=== PATIENT | male | born 1980 | race African-American/Black ===

== ENCOUNTER 2018-04-26 13:03 | Inpatient (IN) | payer MEDICAID ==
[~2018-04-26] VITALS: Ht 190.5 cm; Wt 83.5 kg
[~2018-04-26 13:03] MED LIST: ALBU8HFA IH; DIVA500T52 PO; LITH300CRT PO; LURA80 PO; QUET300T2 PO
[2018-04-26] MEDS ORDERED: CLOZ100 PO (13:15)
[2018-04-26] MEDS ORDERED: RITO100T PO (13:15)
[2018-04-26] MEDS ORDERED: DARU800T PO (13:15)
[2018-04-26] MEDS ORDERED: CHLO100T24 PO (13:15)
[2018-04-26] MEDS ORDERED: EMTR1TAB13 PO (13:15)
[2018-04-26 15:31] LABS: BASOPHILS % (AUTO) 0.9 % (0.0-2.0); EOSINOPHILS % (AUTO) 0.2 % (1.0-6.0); HEMATOCRIT 42.4 % (41-53); HEMOGLOBIN 14.1 g/dL (13.5-17.5); LYMPHOCYTES % (AUTO) 13.3 % (22.0-44.0); MEAN CORPUSCULAR HEMOGLOBIN 32.3 pg (26.0-34.0); MEAN CORPUSCULAR HGB CONC 33.3 G/dL (31.0-37.0); MEAN CORPUSCULAR VOLUME 97 fL (80-100); MONOCYTES # (AUTO) 0.6 K/uL (0.1-1.0); MONOCYTES % (AUTO) 7.6 % (2.0-9.0); NEUTROPHILS # (AUTO) 5.9 K/uL (1.8-7.7); PLATELET COUNT (AUTO) 257 K/uL (150-450); RED BLOOD CELL COUNT(AUTO) 4.37 MIL/uL (4.50-5.90); RED CELL DISTRIBUTION WIDTH 13.1 % (11.5-14.5)
[2018-04-26 15:47] LABS: ANION GAP 9 mmol/L (8-16); CALCIUM, TOTAL 8.9 mg/dL (8.8-10.5); CARBON DIOXIDE 27 mmol/L (22-29); CHLORIDE 101 mmol/L (98-107); CREATININE 1.58 mg/dL (0.60-1.30); GLOMERULAR FILTR. RATE CALC 60 mL/min (>60); GLUCOSE,RANDOM 90 mg/dL (70-110); POTASSIUM 4.1 mmol/L (3.5-5.1); SODIUM SERUM 137 mmol/L (136-145); UREA NITROGEN, BLOOD 22 mg/dL (7-18)
[2018-04-26 15:50] LABS: ALANINE AMINOTRANSFERASE 96 U/L (12-78); ALBUMIN 4.4 g/dL (3.4-5.0); ALKALINE PHOSPHATASE 106 U/L (46-116); ASPARTATE AMINOTRANSFERASE 52 U/L (15-37); BILIRUBIN,TOTAL 0.7 mg/dL (0.1-1.0); TOTAL PROTEIN, SERUM 8.3 g/dL (6.4-8.2)
[2018-04-26 16:54] LABS: APPEARANCE,URINE CLEAR (CLEAR); GLUCOSE, URINE (UA) NEGATIVE (NEGATIVE); KETONES,URINE 15 mg/dL (NEGATIVE); LEUKOCYTE ESTERASE ,URINE NEGATIVE (NEGATIVE); NITRATE,URINE NEGATIVE (NEGATIVE); OCCULT BLOOD,URINE NEGATIVE (NEGATIVE); PH,URINE 6.5 (5.0-8.0); PROTEIN,URINE POS 1+ (NEGATIVE); UROBILINOGEN,URINE 0.2 mg/dL (<=1.0)
[2018-04-26 16:56] LABS: BILIRUBIN,URINE PRELIM. POSITIVE (NEGATIVE)
[2018-04-26 16:59] LABS: AMPHET/METH SCREEN,URINE NEGATIVE (NEGATIVE); BARBITURATE SCREEN, URINE NEGATIVE (NEGATIVE); BENZODIAZEPINES SCREEN,URINE NEGATIVE (NEGATIVE); CANNABINOID SCREEN,URINE POSITIVE (NEGATIVE); COCAINE SCREEN,URINE NEGATIVE (NEGATIVE); METHADONE SCREEN, URINE NEGATIVE (NEGATIVE); OPIATE SCREEN,URINE NEGATIVE (NEGATIVE)
[2018-04-26 17:00] LABS: PHENCYCLIDINE SCREEN,URINE NEGATIVE (NEGATIVE)
[2018-04-26] MEDS ORDERED: HydrOXYzine PAMOATE 50 MG CAPSULE PO PRN (17:15)
[2018-04-26] MEDS ORDERED: LORazepam 2 MG TABLET PO PRN (17:15)
[2018-04-26] MEDS ORDERED: ACETAMINOPHEN 325 MG TABLET PO PRN (17:15)
[2018-04-26] MEDS ORDERED: LOPERAMIDE HCL 2 MG CAPSULE PO PRN (17:15)
[2018-04-26] MEDS ORDERED: PROMETHAZINE HCL 25 MG TABLET PO PRN (17:15)
[2018-04-26] MEDS ORDERED: GuaiFENesin/D-METHORPHAN [SUGAR-FREE] 200-20MG/10 ML SYRUP UDCUP PO PRN (17:15)
[2018-04-26] MEDS ORDERED: MAG HYDROX/AL HYDROX/SIMETH ES 30 ML SUSPENSION UDCUP PO PRN (17:15)
[2018-04-26] MEDS ORDERED: TUBERCULIN, PURIFIED PROTEIN DERIVATIVE 5 TU/0.1 ML SYG ID ONE (17:15)
[2018-04-26] MEDS ORDERED: HALOPERIDOL LACTATE 5 MG/ML VIAL IM PRN (17:15)
[2018-04-26] MEDS ORDERED: MAGNESIUM HYDROXIDE SUSPENSION 30 ML UDCUP PO PRN (17:15)
[2018-04-26 17:37] LABS: RBC,URINE 0-2 /HPF (0-2)
[2018-04-26 17:38] LABS: BACTERIA,URINE Rare /HPF (None Seen); SQUAMOUS EPITHELIAL CELL,UR Few /LPF (None Seen); WBC,URINE 0-2 /HPF (0-5)
[2018-04-26 19:21] VITALS: BP 124/80
[2018-04-26] MEDS: THIAMINE HCL 100 MG TABLET PO SCH (19:32)
[2018-04-26 20:06] VITALS: BP 124/80
[2018-04-26] MEDS: ZOLPIDEM TARTRATE 10 MG TABLET PO PRN (20:30)
[2018-04-26] MEDS: DIVALPROEX SODIUM 500 MG ER TABLET PO SCH (20:30)
[2018-04-26] MEDS ORDERED: PNEUMOCOCCAL VACCINE POLYVALENT 0.5 ML VIAL [PPSV23] IM ONE (20:45)
[2018-04-27 05:47] VITALS: BP 118/72
[2018-04-27] MEDS: RITONAVIR 100 MG TABLET PO SCH (06:38)
[2018-04-27] MEDS: DARUNAVIR ETHANOLATE 800 MG TABLET PO SCH (06:39)
[2018-04-27 08:05] VITALS: BP 101/69
[2018-04-27] MEDS ORDERED: CloZAPine 25 MG TABLET PO SCH (09:00)
[2018-04-27] MEDS: MULTIVITAMINS WITH MINERALS, THERAPEUTIC TABLET PO SCH (09:52)
[2018-04-27] MEDS: FOLIC ACID 1 MG TABLET PO SCH (09:52)
[2018-04-27] MEDS: THIAMINE HCL 100 MG TABLET PO SCH ×2 (09:52→16:30)
[2018-04-27] MEDS ORDERED: BENZOCAINE/MENTHOL LOZENGE MM PRN (12:15)
[2018-04-27] MEDS ORDERED: CloNIDine HCL 0.1 MG TABLET PO PRN (12:15)
[2018-04-27] MEDS ORDERED: IBUPROFEN 600 MG TABLET PO PRN (12:15)
[2018-04-27] MEDS ORDERED: PETROLATUM,WHITE 71 GM JELLY TP PRN (12:15)
[2018-04-27] MEDS ORDERED: LOPERAMIDE HCL 2 MG CAPSULE PO PRN (12:15)
[2018-04-27] MEDS ORDERED: OMEPRAZOLE 20 MG CAPSULE PO PRN (12:15)
[2018-04-27] MEDS ORDERED: MAGNESIUM HYDROXIDE SUSPENSION 30 ML UDCUP PO PRN (12:15)
[2018-04-27] MEDS ORDERED: ONDANSETRON HCL 4 MG TABLET PO PRN (12:15)
[2018-04-27] MEDS ORDERED: ALBUTEROL SULFATE HFA 90 MCG/PUFF 8 GM INHALER IH PRN (12:15)
[2018-04-27] MEDS ORDERED: BACITRACIN 28.4 GM OINTMENT TP PRN (12:15)
[2018-04-27] MEDS ORDERED: DOCUSATE SODIUM 100 MG CAPSULE PO PRN (12:15)
[2018-04-27 16:24] VITALS: BP 116/70
[2018-04-27] MEDS: LORazepam 0.5 MG TABLET PO PRN (16:30)
[2018-04-27] MEDS: DIVALPROEX SODIUM 500 MG ER TABLET PO SCH (20:30)
[2018-04-27] MEDS: ZOLPIDEM TARTRATE 10 MG TABLET PO PRN (20:30)
[2018-04-28 03:48] VITALS: BP 111/64
[2018-04-28] MEDS: DARUNAVIR ETHANOLATE 800 MG TABLET PO SCH (07:07)
[2018-04-28] MEDS: RITONAVIR 100 MG TABLET PO SCH (07:07)
[2018-04-28 08:07] VITALS: BP 104/63
[2018-04-28 08:41] LABS: BASOPHILS % (AUTO) 0.8 % (0.0-2.0); EOSINOPHILS % (AUTO) 3.9 % (1.0-6.0); HEMATOCRIT 41.1 % (41-53); HEMOGLOBIN 13.8 g/dL (13.5-17.5); LYMPHOCYTES # (AUTO) 1.1 K/uL (1.0-4.8); LYMPHOCYTES % (AUTO) 30.6 % (22.0-44.0); MEAN CORPUSCULAR HEMOGLOBIN 32.7 pg (26.0-34.0); MEAN CORPUSCULAR HGB CONC 33.6 G/dL (31.0-37.0); MEAN CORPUSCULAR VOLUME 97 fL (80-100); MONOCYTES # (AUTO) 0.3 K/uL (0.1-1.0); MONOCYTES % (AUTO) 8.7 % (2.0-9.0); NEUTROPHILS # (AUTO) 2.1 K/uL (1.8-7.7); PLATELET COUNT (AUTO) 227 K/uL (150-450); RED BLOOD CELL COUNT(AUTO) 4.23 MIL/uL (4.50-5.90)
[2018-04-28] MEDS ORDERED: CloZAPine 25 MG TABLET PO SCH ×2 (09:00→21:00)
[2018-04-28] MEDS: MULTIVITAMINS WITH MINERALS, THERAPEUTIC TABLET PO SCH (09:02)
[2018-04-28] MEDS: THIAMINE HCL 100 MG TABLET PO SCH ×2 (09:02→16:48)
[2018-04-28] MEDS: FOLIC ACID 1 MG TABLET PO SCH (09:02)
[2018-04-28 09:03] LABS: ALANINE AMINOTRANSFERASE 59 U/L (12-78); ALBUMIN 3.5 g/dL (3.4-5.0); ALKALINE PHOSPHATASE 102 U/L (46-116); ANION GAP 5 mmol/L (8-16); ASPARTATE AMINOTRANSFERASE 24 U/L (15-37); BILIRUBIN,TOTAL 0.5 mg/dL (0.1-1.0); CALCIUM, TOTAL 8.5 mg/dL (8.8-10.5); CARBON DIOXIDE 30 mmol/L (22-29); CHLORIDE 102 mmol/L (98-107); CREATININE 1.15 mg/dL (0.60-1.30); FREE T4 (FREE THYROXINE) 1.03 ng/dL (0.76-1.46); GLOMERULAR FILTR. RATE CALC > 60 mL/min (>60); GLUCOSE,RANDOM 80 mg/dL (70-110); POTASSIUM 4.2 mmol/L (3.5-5.1); SODIUM SERUM 137 mmol/L (136-145); THYROID STIMULATING HORMONE 0.16 uIU/mL (0.36-3.74); TOTAL PROTEIN, SERUM 7.2 g/dL (6.4-8.2); UREA NITROGEN, BLOOD 16 mg/dL (7-18)
[2018-04-28 16:12] VITALS: BP 105/61
[2018-04-28] MEDS: LORazepam 0.5 MG TABLET PO PRN (16:48)
[2018-04-28] MEDS: ZOLPIDEM TARTRATE 10 MG TABLET PO PRN (21:01)
[2018-04-28] MEDS: DIVALPROEX SODIUM 500 MG ER TABLET PO SCH (21:01)
[2018-04-29 04:50] VITALS: BP 115/77
[2018-04-29] MEDS: DARUNAVIR ETHANOLATE 800 MG TABLET PO SCH (06:56)
[2018-04-29] MEDS: RITONAVIR 100 MG TABLET PO SCH (06:56)
[2018-04-29 08:06] VITALS: BP 110/60
[2018-04-29] MEDS: FOLIC ACID 1 MG TABLET PO SCH (08:36)
[2018-04-29] MEDS: MULTIVITAMINS WITH MINERALS, THERAPEUTIC TABLET PO SCH (08:36)
[2018-04-29] MEDS: THIAMINE HCL 100 MG TABLET PO SCH ×2 (08:36→16:39)
[2018-04-29] MEDS: LORazepam 0.5 MG TABLET PO PRN ×3 (08:36→20:58)
[2018-04-29] MEDS ORDERED: CloZAPine 25 MG TABLET PO SCH ×2 (09:00→21:00)
[2018-04-29 16:00] VITALS: BP 105/65
[2018-04-29] MEDS: DIVALPROEX SODIUM 500 MG ER TABLET PO SCH (20:58)
[2018-04-29] MEDS: ZOLPIDEM TARTRATE 10 MG TABLET PO PRN (20:58)
[2018-04-30 04:14] VITALS: BP 140/92
[2018-04-30] MEDS: RITONAVIR 100 MG TABLET PO SCH (06:21)
[2018-04-30] MEDS: DARUNAVIR ETHANOLATE 800 MG TABLET PO SCH (06:21)
[2018-04-30 08:07] VITALS: BP 106/61
[2018-04-30 08:35] LABS: HEMATOCRIT 40.5 % (41-53); HEMOGLOBIN 13.6 g/dL (13.5-17.5); MEAN CORPUSCULAR HEMOGLOBIN 32.8 pg (26.0-34.0); MEAN CORPUSCULAR HGB CONC 33.6 G/dL (31.0-37.0); MEAN CORPUSCULAR VOLUME 98 fL (80-100); PLATELET COUNT (AUTO) 223 K/uL (150-450); RED BLOOD CELL COUNT(AUTO) 4.15 MIL/uL (4.50-5.90); RED CELL DISTRIBUTION WIDTH 12.7 % (11.5-14.5)
[2018-04-30 08:58] LABS: ANION GAP 3 mmol/L (8-16); CALCIUM, TOTAL 8.7 mg/dL (8.8-10.5); CARBON DIOXIDE 33 mmol/L (22-29); CHLORIDE 100 mmol/L (98-107); CREATININE 1.14 mg/dL (0.60-1.30); GLOMERULAR FILTR. RATE CALC > 60 mL/min (>60); GLUCOSE,RANDOM 72 mg/dL (70-110); PHOSPHORUS 3.5 mg/dL (2.5-4.9); POTASSIUM 4.3 mmol/L (3.5-5.1); SODIUM SERUM 136 mmol/L (136-145); UREA NITROGEN, BLOOD 22 mg/dL (7-18)
[2018-04-30 09:11] LABS: BAND NEUTROPHILS % (MANUAL) 1 % (0-5); EOSINOPHILS % (MANUAL) 3 % (1-6); LYMPHOCYTES % (MANUAL) 19 % (22-44); MONOCYTES % (MANUAL) 7 % (2-9); SEGMENTED NEUTROPHILS % 70 % (40-70)
[2018-04-30] MEDS: FOLIC ACID 1 MG TABLET PO SCH (10:55)
[2018-04-30] MEDS: MULTIVITAMINS WITH MINERALS, THERAPEUTIC TABLET PO SCH (10:55)
[2018-04-30] MEDS: THIAMINE HCL 100 MG TABLET PO SCH ×2 (10:56→16:42)
[2018-04-30] MEDS: CloZAPine 25 MG TABLET PO SCH ×2 (10:56→20:47)
[2018-04-30 16:00] VITALS: BP 110/78
[2018-04-30] MEDS: OLANZapine 5 MG RAPDIS TABLET PO PRN (16:43)
[2018-04-30] MEDS: LORazepam 0.5 MG TABLET PO PRN (16:43)
[2018-04-30] MEDS: ZOLPIDEM TARTRATE 10 MG TABLET PO PRN (20:47)
[2018-04-30] MEDS: DIVALPROEX SODIUM 500 MG ER TABLET PO SCH (20:47)
[2018-05-01 00:44] VITALS: BP 114/71
[2018-05-01] MEDS: RITONAVIR 100 MG TABLET PO SCH (06:45)
[2018-05-01] MEDS: DARUNAVIR ETHANOLATE 800 MG TABLET PO SCH (06:45)
[2018-05-01 08:06] VITALS: BP 110/77
[2018-05-01] MEDS: FOLIC ACID 1 MG TABLET PO SCH (08:32)
[2018-05-01] MEDS: THIAMINE HCL 100 MG TABLET PO SCH ×2 (08:32→16:43)
[2018-05-01] MEDS: CloZAPine 25 MG TABLET PO SCH ×2 (08:33→20:45)
[2018-05-01] MEDS: MULTIVITAMINS WITH MINERALS, THERAPEUTIC TABLET PO SCH (08:36)
[2018-05-01] MEDS: LORazepam 0.5 MG TABLET PO PRN ×3 (10:13→20:44)
[2018-05-01 16:00] VITALS: BP 106/78
[2018-05-01] MEDS: ZOLPIDEM TARTRATE 10 MG TABLET PO PRN (20:44)
[2018-05-01] MEDS: DIVALPROEX SODIUM 500 MG ER TABLET PO SCH (20:45)
[2018-05-02 02:59] VITALS: BP 108/70
[2018-05-02] MEDS: DARUNAVIR ETHANOLATE 800 MG TABLET PO SCH (06:40)
[2018-05-02] MEDS: RITONAVIR 100 MG TABLET PO SCH (06:40)
[2018-05-02] MEDS: MULTIVITAMINS WITH MINERALS, THERAPEUTIC TABLET PO SCH (08:04)
[2018-05-02] MEDS: LORazepam 0.5 MG TABLET PO PRN ×2 (08:04→16:15)
[2018-05-02] MEDS: OLANZapine 5 MG RAPDIS TABLET PO PRN ×2 (08:04→16:15)
[2018-05-02] MEDS: FOLIC ACID 1 MG TABLET PO SCH (08:04)
[2018-05-02] MEDS: THIAMINE HCL 100 MG TABLET PO SCH ×2 (08:04→16:15)
[2018-05-02 08:08] VITALS: BP 107/74
[2018-05-02] MEDS ORDERED: CloZAPine 25 MG TABLET PO SCH (09:00)
[2018-05-02 16:14] VITALS: BP 120/74
[2018-05-02] MEDS: DIVALPROEX SODIUM 500 MG ER TABLET PO SCH (19:57)
[2018-05-02] MEDS ORDERED: CloZAPine 100 MG TABLET PO SCH (21:00)
[2018-05-03 02:19] VITALS: BP 109/62
[2018-05-03] MEDS: DARUNAVIR ETHANOLATE 800 MG TABLET PO SCH (06:27)
[2018-05-03] MEDS: RITONAVIR 100 MG TABLET PO SCH (06:27)
[2018-05-03 08:00] VITALS: BP 110/64
[2018-05-03] MEDS: MULTIVITAMINS WITH MINERALS, THERAPEUTIC TABLET PO SCH (08:35)
[2018-05-03] MEDS: THIAMINE HCL 100 MG TABLET PO SCH ×2 (08:35→16:08)
[2018-05-03] MEDS: FOLIC ACID 1 MG TABLET PO SCH (08:35)
[2018-05-03] MEDS: LORazepam 0.5 MG TABLET PO PRN ×2 (08:35→16:08)
[2018-05-03] MEDS ORDERED: CloZAPine 25 MG TABLET PO SCH (09:00)
[2018-05-03 16:00] VITALS: BP 111/72
[2018-05-03] MEDS: DIVALPROEX SODIUM 500 MG ER TABLET PO SCH (20:23)
[2018-05-03] MEDS: ZOLPIDEM TARTRATE 10 MG TABLET PO PRN (20:24)
[2018-05-03] MEDS ORDERED: CloZAPine 100 MG TABLET PO SCH (21:00)
[2018-05-04 01:13] VITALS: BP 114/76
[2018-05-04] MEDS: RITONAVIR 100 MG TABLET PO SCH (06:37)
[2018-05-04] MEDS: DARUNAVIR ETHANOLATE 800 MG TABLET PO SCH (06:37)
[2018-05-04 08:06] VITALS: BP 102/66
[2018-05-04] MEDS: MULTIVITAMINS WITH MINERALS, THERAPEUTIC TABLET PO SCH (08:27)
[2018-05-04] MEDS: FOLIC ACID 1 MG TABLET PO SCH (08:27)
[2018-05-04] MEDS: THIAMINE HCL 100 MG TABLET PO SCH ×2 (08:27→16:16)
[2018-05-04 08:34] LABS: BAND NEUTROPHILS % (MANUAL) 0 % (0-5)
[2018-05-04 08:38] LABS: HEMATOCRIT 40.5 % (41-53); HEMOGLOBIN 13.4 g/dL (13.5-17.5); MEAN CORPUSCULAR HEMOGLOBIN 32.4 pg (26.0-34.0); MEAN CORPUSCULAR HGB CONC 33.2 G/dL (31.0-37.0); MEAN CORPUSCULAR VOLUME 98 fL (80-100); PLATELET COUNT (AUTO) 211 K/uL (150-450); RED BLOOD CELL COUNT(AUTO) 4.14 MIL/uL (4.50-5.90)
[2018-05-04] MEDS ORDERED: CloZAPine 25 MG TABLET PO SCH (09:00)
[2018-05-04 09:23] LABS: EOSINOPHILS % (MANUAL) 3 % (1-6); LYMPHOCYTES % (MANUAL) 32 % (22-44); MONOCYTES % (MANUAL) 11 % (2-9); SEGMENTED NEUTROPHILS % 54 % (40-70)
[2018-05-04 15:57] VITALS: BP 118/67
[2018-05-04 19:10] VITALS: BP 118/67
[2018-05-04] MEDS: ZOLPIDEM TARTRATE 10 MG TABLET PO PRN (20:34)
[2018-05-04] MEDS: DIVALPROEX SODIUM 500 MG ER TABLET PO SCH (20:35)
[2018-05-04] MEDS ORDERED: CloZAPine 100 MG TABLET PO SCH (21:00)
[2018-05-05 05:10] VITALS: BP 116/71
[2018-05-05] MEDS: RITONAVIR 100 MG TABLET PO SCH (06:47)
[2018-05-05] MEDS: DARUNAVIR ETHANOLATE 800 MG TABLET PO SCH (06:47)
[2018-05-05 08:08] VITALS: BP 111/66
[2018-05-05] MEDS: FOLIC ACID 1 MG TABLET PO SCH (08:08)
[2018-05-05] MEDS: MULTIVITAMINS WITH MINERALS, THERAPEUTIC TABLET PO SCH (08:08)
[2018-05-05] MEDS: CloZAPine 100 MG TABLET PO SCH ×2 (08:09→20:25)
[2018-05-05] MEDS: THIAMINE HCL 100 MG TABLET PO SCH ×2 (08:09→16:32)
[2018-05-05 16:17] VITALS: BP 108/67
[2018-05-05] MEDS: LORazepam 0.5 MG TABLET PO PRN (16:32)
[2018-05-05] MEDS: ZOLPIDEM TARTRATE 10 MG TABLET PO PRN (20:25)
[2018-05-05] MEDS: DIVALPROEX SODIUM 500 MG ER TABLET PO SCH (20:25)
[2018-05-06 02:02] VITALS: BP 97/66
[2018-05-06] MEDS: RITONAVIR 100 MG TABLET PO SCH (06:34)
[2018-05-06] MEDS: DARUNAVIR ETHANOLATE 800 MG TABLET PO SCH (06:35)
[2018-05-06 08:07] VITALS: BP 102/63
[2018-05-06] MEDS: FOLIC ACID 1 MG TABLET PO SCH (08:31)
[2018-05-06] MEDS: MULTIVITAMINS WITH MINERALS, THERAPEUTIC TABLET PO SCH (08:31)
[2018-05-06] MEDS: CloZAPine 100 MG TABLET PO SCH ×2 (08:32→21:08)
[2018-05-06] MEDS: THIAMINE HCL 100 MG TABLET PO SCH (08:33)
[2018-05-06 16:11] VITALS: BP 116/68
[2018-05-06] MEDS: LORazepam 0.5 MG TABLET PO PRN ×2 (16:40→21:08)
[2018-05-06] MEDS: DIVALPROEX SODIUM 500 MG ER TABLET PO SCH (21:07)
[2018-05-06] MEDS: ZOLPIDEM TARTRATE 10 MG TABLET PO PRN (21:08)
[2018-05-07 05:32] VITALS: BP 110/72
[2018-05-07] MEDS: DARUNAVIR ETHANOLATE 800 MG TABLET PO SCH (06:39)
[2018-05-07] MEDS: RITONAVIR 100 MG TABLET PO SCH (06:39)
[2018-05-07 08:07] VITALS: BP 114/70
[2018-05-07] MEDS: MULTIVITAMINS WITH MINERALS, THERAPEUTIC TABLET PO SCH (08:07)
[2018-05-07] MEDS: LORazepam 0.5 MG TABLET PO PRN ×2 (08:07→16:33)
[2018-05-07] MEDS: OLANZapine 5 MG RAPDIS TABLET PO PRN (08:07)
[2018-05-07] MEDS ORDERED: CloZAPine 25 MG TABLET PO SCH (09:00)
[2018-05-07] MEDS: LITHIUM CARBONATE 300 MG CAPSULE PO SCH ×2 (13:09→16:34)
[2018-05-07 16:00] VITALS: BP 108/68
[2018-05-07] MEDS ORDERED: CloZAPine 100 MG TABLET PO SCH (21:00)
[2018-05-07] MEDS: ZOLPIDEM TARTRATE 10 MG TABLET PO PRN (21:19)
[2018-05-07] MEDS: DIVALPROEX SODIUM 500 MG ER TABLET PO SCH (21:19)
[2018-05-08 00:32] VITALS: BP 116/69
[2018-05-08] MEDS: DARUNAVIR ETHANOLATE 800 MG TABLET PO SCH (06:33)
[2018-05-08] MEDS: RITONAVIR 100 MG TABLET PO SCH (06:33)
[2018-05-08 08:11] VITALS: BP 117/73
[2018-05-08] MEDS: LITHIUM CARBONATE 300 MG CAPSULE PO SCH ×3 (08:37→16:54)
[2018-05-08] MEDS: MULTIVITAMINS WITH MINERALS, THERAPEUTIC TABLET PO SCH (08:37)
[2018-05-08] MEDS ORDERED: CloZAPine 25 MG TABLET PO SCH (09:00)
[2018-05-08 16:07] VITALS: BP 112/75
[2018-05-08] MEDS: OLANZapine 5 MG RAPDIS TABLET PO PRN (16:54)
[2018-05-08] MEDS: LORazepam 0.5 MG TABLET PO PRN (16:54)
[2018-05-08] MEDS: DIVALPROEX SODIUM 500 MG ER TABLET PO SCH (20:59)
[2018-05-08] MEDS: ZOLPIDEM TARTRATE 10 MG TABLET PO PRN (20:59)
[2018-05-08] MEDS ORDERED: CloZAPine 100 MG TABLET PO SCH (21:00)
[2018-05-09 02:53] VITALS: BP 115/80
[2018-05-09] MEDS: RITONAVIR 100 MG TABLET PO SCH (06:28)
[2018-05-09] MEDS: DARUNAVIR ETHANOLATE 800 MG TABLET PO SCH (06:28)
[2018-05-09 08:08] VITALS: BP 110/78
[2018-05-09] MEDS: LITHIUM CARBONATE 300 MG CAPSULE PO SCH ×3 (08:38→16:45)
[2018-05-09] MEDS: MULTIVITAMINS WITH MINERALS, THERAPEUTIC TABLET PO SCH (08:38)
[2018-05-09] MEDS: CloZAPine 100 MG TABLET PO SCH ×2 (08:38→20:14)
[2018-05-09 16:35] VITALS: BP 115/75
[2018-05-09] MEDS: OLANZapine 5 MG RAPDIS TABLET PO PRN (16:45)
[2018-05-09] MEDS: LORazepam 0.5 MG TABLET PO PRN (16:46)
[2018-05-09] MEDS: DIVALPROEX SODIUM 500 MG ER TABLET PO SCH (20:14)
[2018-05-10 02:39] VITALS: BP 129/90
[2018-05-10] MEDS: DARUNAVIR ETHANOLATE 800 MG TABLET PO SCH (06:35)
[2018-05-10] MEDS: RITONAVIR 100 MG TABLET PO SCH (06:35)
[2018-05-10 08:07] VITALS: BP 112/62
[2018-05-10] MEDS: OLANZapine 5 MG RAPDIS TABLET PO PRN (08:32)
[2018-05-10] MEDS: LORazepam 0.5 MG TABLET PO PRN ×3 (08:32→20:55)
[2018-05-10] MEDS: MULTIVITAMINS WITH MINERALS, THERAPEUTIC TABLET PO SCH (08:32)
[2018-05-10] MEDS: LITHIUM CARBONATE 300 MG CAPSULE PO SCH ×3 (08:32→16:31)
[2018-05-10] MEDS: CloZAPine 100 MG TABLET PO SCH ×2 (08:32→20:55)
[2018-05-10 16:00] VITALS: BP 121/77
[2018-05-10] MEDS: DIVALPROEX SODIUM 500 MG ER TABLET PO SCH (20:55)
[2018-05-10] MEDS: ZOLPIDEM TARTRATE 10 MG TABLET PO PRN (20:55)
[2018-05-11 02:58] VITALS: BP 118/72
[2018-05-11] MEDS: DARUNAVIR ETHANOLATE 800 MG TABLET PO SCH (06:37)
[2018-05-11] MEDS: RITONAVIR 100 MG TABLET PO SCH (06:37)
[2018-05-11 08:13] LABS: BASOPHILS % (AUTO) 0.7 % (0.0-2.0); EOSINOPHILS % (AUTO) 6.6 % (1.0-6.0); HEMATOCRIT 39.5 % (41-53); HEMOGLOBIN 13.2 g/dL (13.5-17.5); LYMPHOCYTES # (AUTO) 1.3 K/uL (1.0-4.8); LYMPHOCYTES % (AUTO) 24.4 % (22.0-44.0); MEAN CORPUSCULAR HEMOGLOBIN 32.5 pg (26.0-34.0); MEAN CORPUSCULAR HGB CONC 33.5 G/dL (31.0-37.0); MEAN CORPUSCULAR VOLUME 97 fL (80-100); MONOCYTES # (AUTO) 0.6 K/uL (0.1-1.0); MONOCYTES % (AUTO) 10.4 % (2.0-9.0); NEUTROPHILS # (AUTO) 3.2 K/uL (1.8-7.7); NEUTROPHILS % (AUTO) 57.9 % (40.0-70.0); PLATELET COUNT (AUTO) 188 K/uL (150-450); RED BLOOD CELL COUNT(AUTO) 4.08 MIL/uL (4.50-5.90); RED CELL DISTRIBUTION WIDTH 13.4 % (11.5-14.5)
[2018-05-11 08:14] VITALS: BP 105/66
[2018-05-11 08:37] LABS: ANION GAP 3 mmol/L (8-16); CALCIUM, TOTAL 8.5 mg/dL (8.8-10.5); CARBON DIOXIDE 34 mmol/L (22-29); CHLORIDE 104 mmol/L (98-107); CREATININE 0.97 mg/dL (0.60-1.30); GLOMERULAR FILTR. RATE CALC > 60 mL/min (>60); GLUCOSE,RANDOM 102 mg/dL (70-110); POTASSIUM 4.3 mmol/L (3.5-5.1); SODIUM SERUM 141 mmol/L (136-145); UREA NITROGEN, BLOOD 23 mg/dL (7-18)
[2018-05-11 08:47] LABS: LITHIUM 0.49 mmol/L (0.60-1.20)
[2018-05-11] MEDS: LORazepam 0.5 MG TABLET PO PRN ×3 (09:09→20:41)
[2018-05-11] MEDS: OLANZapine 5 MG RAPDIS TABLET PO PRN (09:09)
[2018-05-11] MEDS: MULTIVITAMINS WITH MINERALS, THERAPEUTIC TABLET PO SCH (09:09)
[2018-05-11] MEDS: LITHIUM CARBONATE 300 MG CAPSULE PO SCH ×4 (09:09→20:41)
[2018-05-11] MEDS: CloZAPine 100 MG TABLET PO SCH ×2 (09:10→20:41)
[2018-05-11 13:46] VITALS: BP 105/66
[2018-05-11 16:00] VITALS: BP 117/70
[2018-05-11] MEDS ORDERED: DIVA500T52 PO (16:48)
[2018-05-11] MEDS ORDERED: LITH300C3 PO (16:48)
[2018-05-11] MEDS ORDERED: NALT50TA PO (16:48)
[2018-05-11] MEDS ORDERED: CLOZ100 PO ×2 (16:48)
[2018-05-11] MEDS: DIVALPROEX SODIUM 500 MG ER TABLET PO SCH (20:41)
[2018-05-11] MEDS: ZOLPIDEM TARTRATE 10 MG TABLET PO PRN (20:41)
[2018-05-12 05:20] VITALS: BP 121/75
[2018-05-12] MEDS: DARUNAVIR ETHANOLATE 800 MG TABLET PO SCH (06:47)
[2018-05-12] MEDS: RITONAVIR 100 MG TABLET PO SCH (06:47)
[2018-05-12 08:15] VITALS: BP 117/68
[2018-05-12] MEDS: CloZAPine 100 MG TABLET PO SCH ×2 (08:46→20:39)
[2018-05-12] MEDS: MULTIVITAMINS WITH MINERALS, THERAPEUTIC TABLET PO SCH (08:46)
[2018-05-12] MEDS: LITHIUM CARBONATE 300 MG CAPSULE PO SCH ×4 (08:47→20:40)
[2018-05-12 16:00] VITALS: BP 125/84
[2018-05-12] MEDS: LORazepam 0.5 MG TABLET PO PRN ×2 (16:15→20:40)
[2018-05-12] MEDS: ZOLPIDEM TARTRATE 10 MG TABLET PO PRN (20:40)
[2018-05-12] MEDS: DIVALPROEX SODIUM 500 MG ER TABLET PO SCH (20:40)
[2018-05-13 01:55] VITALS: BP 110/72
[2018-05-13] MEDS: RITONAVIR 100 MG TABLET PO SCH (06:56)
[2018-05-13] MEDS: DARUNAVIR ETHANOLATE 800 MG TABLET PO SCH (06:56)
[2018-05-13 08:13] VITALS: BP 111/63
[2018-05-13] MEDS: LITHIUM CARBONATE 300 MG CAPSULE PO SCH ×4 (08:42→20:35)
[2018-05-13] MEDS: CloZAPine 100 MG TABLET PO SCH (08:42)
[2018-05-13] MEDS: MULTIVITAMINS WITH MINERALS, THERAPEUTIC TABLET PO SCH (08:42)
[2018-05-13] MEDS: LORazepam 0.5 MG TABLET PO PRN (16:29)
[2018-05-13 16:34] VITALS: BP 116/74
[2018-05-13] MEDS: ZOLPIDEM TARTRATE 10 MG TABLET PO PRN (20:35)
[2018-05-13] MEDS: DIVALPROEX SODIUM 500 MG ER TABLET PO SCH (20:35)
[2018-05-13] MEDS ORDERED: CloZAPine 100 MG TABLET PO SCH (21:00)
[2018-05-14] MEDS: DARUNAVIR ETHANOLATE 800 MG TABLET PO SCH (06:17)
[2018-05-14] MEDS: RITONAVIR 100 MG TABLET PO SCH (06:17)
[2018-05-14 06:42] VITALS: BP 117/72
[2018-05-14 08:06] VITALS: BP 116/68
[2018-05-14] MEDS: LITHIUM CARBONATE 300 MG CAPSULE PO SCH ×3 (08:07→16:35)
[2018-05-14] MEDS: MULTIVITAMINS WITH MINERALS, THERAPEUTIC TABLET PO SCH (08:07)
[2018-05-14 16:18] VITALS: BP 127/82
== END 2018-05-14 17:00 | disposition home or self-care (01) | DRG 750 ==
LOC: EMS 13:04 → B3A 18:02
PROVIDERS: ADMIT Psychiatry & Neurology Psychiatry; ATTEND Psychiatry & Neurology Psychiatry
DX: F20.0 Paranoid schizophrenia (principal); Z59.0 Homelessness; B15.9 Hepatitis A without hepatic coma; F12.90 Cannabis use, unspecified, uncomplicated; F14.90 Cocaine use, unspecified, uncomplicated; J45.909 Unspecified asthma, uncomplicated; K59.00 Constipation, unspecified; F17.200 Nicotine dependence, unspecified, uncomplicated; G47.00 Insomnia, unspecified; F15.90 Other stimulant use, unspecified, uncomplicated; Z91.14 Patient's other noncompliance with medication regimen
CPT/HCPCS: 80159; 83735; 84100; 84439; 84443; 85007; 86355; 86357; 86359; 86360; 86592; G0480

== ENCOUNTER 2018-06-07 22:05 | Emergency (ER) | payer MEDICAID ==
[~2018-06-07] VITALS: Ht 190.5 cm; Wt 96.4 kg
[~2018-06-07 22:05] MED LIST changes: -ALBU8HFA IH; +CLOZ100 PO; +DARU800T PO; +LITH300C3 PO; -LITH300CRT PO; -LURA80 PO; +NALT50TA PO; -QUET300T2 PO; +RITO100T PO
[2018-06-08] MEDS ORDERED: BACITRACIN 0.9 GM PACKET OINTMENT TP ONE ×2 (01:15→01:45)
[2018-06-08 01:41] LABS: BASOPHILS % (AUTO) 0.5 % (0.0-2.0); EOSINOPHILS % (AUTO) 7.5 % (1.0-6.0); HEMATOCRIT 35.5 % (41-53); HEMOGLOBIN 11.9 g/dL (13.5-17.5); LYMPHOCYTES # (AUTO) 1.1 K/uL (1.0-4.8); LYMPHOCYTES % (AUTO) 12.3 % (22.0-44.0); MEAN CORPUSCULAR HEMOGLOBIN 31.9 pg (26.0-34.0); MEAN CORPUSCULAR HGB CONC 33.4 G/dL (31.0-37.0); MEAN CORPUSCULAR VOLUME 95 fL (80-100); NEUTROPHILS # (AUTO) 6.2 K/uL (1.8-7.7); NEUTROPHILS % (AUTO) 68.7 % (40.0-70.0); PLATELET COUNT (AUTO) 227 K/uL (150-450); RED BLOOD CELL COUNT(AUTO) 3.72 MIL/uL (4.50-5.90); RED CELL DISTRIBUTION WIDTH 13.3 % (11.5-14.5)
[2018-06-08] MEDS ORDERED: POVIDONE-IODINE 10% 15 ML SOLUTION UD TP ONE (01:45)
[2018-06-08] MEDS ORDERED: CHLORHEXIDINE GLUCONATE 4% 118 ML TOPICAL LIQUID TP ONE (01:45)
[2018-06-08 01:48] LABS: ANION GAP 5 mmol/L (8-16); CALCIUM, TOTAL 8.3 mg/dL (8.8-10.5); CARBON DIOXIDE 31 mmol/L (22-29); CHLORIDE 99 mmol/L (98-107); CREATININE 0.99 mg/dL (0.60-1.30); GLOMERULAR FILTR. RATE CALC > 60 mL/min (>60); GLUCOSE,RANDOM 134 mg/dL (70-110); POTASSIUM 3.4 mmol/L (3.5-5.1); SODIUM SERUM 135 mmol/L (136-145); UREA NITROGEN, BLOOD 11 mg/dL (7-18)
[2018-06-08 01:54] LABS: ALANINE AMINOTRANSFERASE 52 U/L (12-78); ALBUMIN 3.1 g/dL (3.4-5.0); ALKALINE PHOSPHATASE 88 U/L (46-116); ASPARTATE AMINOTRANSFERASE 81 U/L (15-37); BILIRUBIN,TOTAL 0.5 mg/dL (0.1-1.0); TOTAL PROTEIN, SERUM 6.8 g/dL (6.4-8.2)
[2018-06-08] MEDS ORDERED: AMOX TR/POT CLAV 875 MG/125 MG TABLET PO ONE (02:45)
[2018-06-08 03:03] VITALS: BP 136/86
== END 2018-06-08 03:28 | disposition home or self-care (01) ==
LOC: EMS 22:06
DX: S91.302A Unspecified open wound, left foot, initial encounter (principal); S91.301A Unspecified open wound, right foot, initial encounter; J45.909 Unspecified asthma, uncomplicated; F20.9 Schizophrenia, unspecified; F12.90 Cannabis use, unspecified, uncomplicated; F19.90 Other psychoactive substance use, unspecified, uncomplicated; X58.XXXA Exposure to other specified factors, initial encounter; Y93.89 Activity, other specified; Y92.89 Other specified places as the place of occurrence of the external cause; Y99.8 Other external cause status

== ENCOUNTER 2020-03-07 12:01 | Emergency (ER) | payer MEDICAID ==
[~2020-03-07] VITALS: Ht 188 cm; Wt 77.3 kg
[~2020-03-07 12:01] MED LIST changes: -CLOZ100 PO; +CLOZ100T32 PO; +DIVA-80 PO; -DIVA500T52 PO
[2020-03-07] MEDS ORDERED: OLAN7.5T2 PO (12:13)
[2020-03-07] MEDS ORDERED: BENZ1TAB10 PO (12:13)
[2020-03-07] MEDS ORDERED: DOXY-354 PO (12:13)
[2020-03-07] MEDS ORDERED: DIVA-112 PO (12:13)
[2020-03-07] MEDS ORDERED: DARU1TAB3 PO (12:13)
[2020-03-07] MEDS ORDERED: DIPH25CA85 PO (12:13)
[2020-03-07] MEDS ORDERED: MUPI1OIN5 TP (12:13)
[2020-03-07] MEDS ORDERED: MULT1CAP32 PO (12:13)
[2020-03-07 15:30] LABS: BASOPHILS % (AUTO) 0.6 % (0.0-2.0); EOSINOPHILS % (AUTO) 1.8 % (1.0-6.0); HEMATOCRIT 41.2 % (41-53); HEMOGLOBIN 13.5 g/dL (13.5-17.5); LYMPHOCYTES # (AUTO) 1.4 K/uL (1.0-4.8); LYMPHOCYTES % (AUTO) 29.4 % (22.0-44.0); MEAN CORPUSCULAR HEMOGLOBIN 30.2 pg (26.0-34.0); MEAN CORPUSCULAR HGB CONC 32.8 G/dL (31.0-37.0); MEAN CORPUSCULAR VOLUME 92 fL (80-100); MONOCYTES # (AUTO) 0.2 K/uL (0.1-1.0); MONOCYTES % (AUTO) 4.3 % (2.0-9.0); NEUTROPHILS % (AUTO) 63.9 % (40.0-70.0); PLATELET COUNT (AUTO) 354 K/uL (150-450); RED BLOOD CELL COUNT(AUTO) 4.47 MIL/uL (4.50-5.90); RED CELL DISTRIBUTION WIDTH 13.3 % (11.5-14.5)
[2020-03-07 15:42] LABS: ANION GAP 3 mmol/L (8-16); CALCIUM, TOTAL 8.5 mg/dL (8.8-10.5); CARBON DIOXIDE 31 mmol/L (22-29); CHLORIDE 104 mmol/L (98-107); CREATININE 0.97 mg/dL (0.60-1.30); GLOMERULAR FILTR. RATE CALC > 60 mL/min (>60); GLUCOSE,RANDOM 95 mg/dL (70-110); POTASSIUM 3.9 mmol/L (3.5-5.1); SODIUM SERUM 138 mmol/L (136-145); UREA NITROGEN, BLOOD 14 mg/dL (7-18)
[2020-03-07 15:45] LABS: ALANINE AMINOTRANSFERASE 18 U/L (12-78); ALBUMIN 3.2 g/dL (3.4-5.0); ALKALINE PHOSPHATASE 91 U/L (46-116); ASPARTATE AMINOTRANSFERASE 21 U/L (15-37); BILIRUBIN,TOTAL 0.3 mg/dL (0.1-1.0); TOTAL PROTEIN, SERUM 7.9 g/dL (6.4-8.2)
[2020-03-07 15:47] LABS: AMPHET/METH SCREEN,URINE POSITIVE (NEGATIVE); BARBITURATE SCREEN, URINE NEGATIVE (NEGATIVE); BENZODIAZEPINES SCREEN,URINE NEGATIVE (NEGATIVE); CANNABINOID SCREEN,URINE POSITIVE (NEGATIVE); COCAINE SCREEN,URINE NEGATIVE (NEGATIVE); METHADONE SCREEN, URINE NEGATIVE (NEGATIVE); OPIATE SCREEN,URINE NEGATIVE (NEGATIVE)
[2020-03-07 15:48] LABS: PHENCYCLIDINE SCREEN,URINE NEGATIVE (NEGATIVE)
[2020-03-07 17:30] VITALS: BP 114/72
== END 2020-03-07 17:48 | disposition home or self-care (01) ==
LOC: EMS 12:02
DX: S61.202A Unspecified open wound of right middle finger without damage to nail, initial encounter (principal); F20.9 Schizophrenia, unspecified; J45.909 Unspecified asthma, uncomplicated; F12.90 Cannabis use, unspecified, uncomplicated; F15.90 Other stimulant use, unspecified, uncomplicated; Z79.899 Other long term (current) drug therapy; X58.XXXA Exposure to other specified factors, initial encounter; Y93.89 Activity, other specified; Y92.89 Other specified places as the place of occurrence of the external cause; Y99.8 Other external cause status
CPT/HCPCS: 36415; 73140; 80053; 80307; 85025; 99284; G0480

== ENCOUNTER 2021-07-27 00:10 | Inpatient (IN) | payer MEDICAID ==
[~2021-07-27] VITALS: Ht 190.5 cm; Wt 102.1 kg
[~2021-07-27 00:10] MED LIST changes: +BENZ1TAB10 PO; -CLOZ100T32 PO; +DARU1TAB3 PO; -DARU800T PO; +DIPH25CA85 PO; +DIVA-112 PO; -DIVA-80 PO; +DOXY-354 PO; -LITH300C3 PO; +MULT1CAP32 PO; +MUPI1OIN5 TP; -NALT50TA PO; +OLAN7.5T22 PO; -RITO100T PO
[2021-07-27 00:50] LABS: BASOPHILS % (AUTO) 0.8 % (0.0-2.0); EOSINOPHILS % (AUTO) 2.3 % (1.0-6.0); HEMATOCRIT 36.9 % (41-53); LYMPHOCYTES # (AUTO) 0.9 K/uL (1.0-4.8); LYMPHOCYTES % (AUTO) 16.5 % (22.0-44.0); MEAN CORPUSCULAR HEMOGLOBIN 26.6 pg (26.0-34.0); MEAN CORPUSCULAR HGB CONC 32.5 G/dL (31.0-37.0); MEAN CORPUSCULAR VOLUME 82 fL (80-100); MONOCYTES # (AUTO) 0.4 K/uL (0.1-1.0); MONOCYTES % (AUTO) 6.9 % (2.0-9.0); NEUTROPHILS # (AUTO) 3.9 K/uL (1.8-7.7); NEUTROPHILS % (AUTO) 73.5 % (40.0-70.0); PLATELET COUNT (AUTO) 303 K/uL (150-450); RED CELL DISTRIBUTION WIDTH 14.9 % (11.5-14.5)
[2021-07-27 01:06] LABS: ANION GAP 8 mmol/L (8-16); CALCIUM, TOTAL 8.8 mg/dL (8.8-10.5); CARBON DIOXIDE 28 mmol/L (22-29); CHLORIDE 102 mmol/L (98-107); CREATININE 1.14 mg/dL (0.60-1.30); GLOMERULAR FILTR. RATE CALC > 60 mL/min (>60); GLUCOSE,RANDOM 152 mg/dL (70-110); POTASSIUM 3.9 mmol/L (3.5-5.1); SODIUM SERUM 138 mmol/L (136-145); UREA NITROGEN, BLOOD 21 mg/dL (7-18)
[2021-07-27 01:11] LABS: ALANINE AMINOTRANSFERASE 40 U/L (12-78); ALBUMIN 3.4 g/dL (3.4-5.0); ALKALINE PHOSPHATASE 140 U/L (46-116); ASPARTATE AMINOTRANSFERASE 37 U/L (15-37); BILIRUBIN,TOTAL 0.2 mg/dL (0.1-1.0); TOTAL PROTEIN, SERUM 7.8 g/dL (6.4-8.2)
[2021-07-27] MEDS ORDERED: LORazepam 2 MG/ML VIAL IM ONE (02:15)
[2021-07-27] MEDS ORDERED: HALOPERIDOL LACTATE 5 MG/ML VIAL IM ONE (02:15)
[2021-07-27] MEDS ORDERED: DiphenhydrAMINE HCL 50 MG/ML VIAL IM ONE (02:15)
[2021-07-27 02:57] LABS: COVID AG,FIA SOURCE NASAL SWAB
[2021-07-27 09:51] LABS: GLUCOMETER DEV NAME(LOC) ERT.5; GLUCOSE,POINT OF CARE 209 MG/DL (70-110)
[2021-07-27] MEDS ORDERED: PETROLATUM,WHITE 28 GM JELLY TP PRN (16:30)
[2021-07-27] MEDS ORDERED: MAGNESIUM HYDROXIDE SUSPENSION 30 ML UDCUP PO PRN (16:30)
[2021-07-27] MEDS ORDERED: IBUPROFEN 400 MG TABLET PO PRN (16:30)
[2021-07-27] MEDS ORDERED: DOCUSATE SODIUM 100 MG CAPSULE PO PRN (16:30)
[2021-07-27] MEDS ORDERED: CloNIDine HCL 0.1 MG TABLET PO PRN (16:30)
[2021-07-27] MEDS ORDERED: MAG HYDROX/AL HYDROX/SIMETH ES 30 ML SUSPENSION UDCUP PO PRN (16:30)
[2021-07-27] MEDS ORDERED: GuaiFENesin/D-METHORPHAN [SUGAR-FREE] 200-20MG/10 ML SYRUP UDCUP PO PRN (16:30)
[2021-07-27] MEDS ORDERED: LOPERAMIDE HCL 2 MG CAPSULE PO PRN (16:30)
[2021-07-27] MEDS ORDERED: NICOTINE 14 MG/24 HOUR PATCH TD PRN (16:30)
[2021-07-27] MEDS ORDERED: ALBUTEROL SULFATE HFA 90 MCG/PUFF 8 GM INHALER IH PRN (16:30)
[2021-07-27] MEDS ORDERED: ONDANSETRON HCL 4 MG TABLET PO PRN (16:30)
[2021-07-27] MEDS ORDERED: ACETAMINOPHEN 325 MG TABLET PO PRN (16:30)
[2021-07-27 19:06] LABS: APPEARANCE,URINE CLEAR (CLEAR); BILIRUBIN,URINE NEGATIVE (NEGATIVE); GLUCOSE, URINE (UA) NEGATIVE (NEGATIVE); KETONES,URINE NEGATIVE (NEGATIVE); LEUKOCYTE ESTERASE ,URINE NEGATIVE (NEGATIVE); NITRATE,URINE NEGATIVE (NEGATIVE); OCCULT BLOOD,URINE NEGATIVE (NEGATIVE); PH,URINE 7.5 (5.0-8.0); PROTEIN,URINE NEGATIVE (NEGATIVE)
[2021-07-27 19:17] LABS: AMPHET/METH SCREEN,URINE POSITIVE (NEGATIVE); BARBITURATE SCREEN, URINE NEGATIVE (NEGATIVE); BENZODIAZEPINES SCREEN,URINE NEGATIVE (NEGATIVE); CANNABINOID SCREEN,URINE POSITIVE (NEGATIVE); COCAINE SCREEN,URINE NEGATIVE (NEGATIVE); METHADONE SCREEN, URINE NEGATIVE (NEGATIVE); OPIATE SCREEN,URINE NEGATIVE (NEGATIVE)
[2021-07-27 19:19] LABS: PHENCYCLIDINE SCREEN,URINE NEGATIVE (NEGATIVE)
[2021-07-27 21:07] VITALS: BP 106/70
[2021-07-27] MEDS ORDERED: PNEUMOCOCCAL VACCINE POLYVALENT 0.5 ML VIAL [PPSV23] IM. ONE (21:15)
[2021-07-27] MEDS ORDERED: INFLUENZA VIRUS VACCINE QVS 2021-22 (6MO+)/PF 60 MCG/0.5 ML SYRINGE IM. ONE (21:15)
[2021-07-28 01:57] VITALS: BP 116/72
[2021-07-28 08:19] VITALS: BP 121/76
[2021-07-28] MEDS: DARUNAVIR/COB/EMTRI/TENOF ALAF 800-150-200-10 MG TABLET PO SCH ×2 (08:44→10:13)
[2021-07-28] MEDS: DIVALPROEX SODIUM 500 MG DR TABLET PO SCH ×2 (10:11→21:00)
[2021-07-28] MEDS: LORazepam 2 MG TABLET PO PRN (10:11)
[2021-07-28] MEDS: OLANZapine 7.5 MG TABLET PO SCH (21:00)
[2021-07-29] MEDS: DIVALPROEX SODIUM 500 MG DR TABLET PO SCH ×2 (09:34→20:42)
[2021-07-29] MEDS: DARUNAVIR/COB/EMTRI/TENOF ALAF 800-150-200-10 MG TABLET PO SCH (09:35)
[2021-07-29 16:14] VITALS: BP 101/62
[2021-07-29] MEDS: HALOPERIDOL 5 MG TABLET PO PRN (17:07)
[2021-07-29] MEDS: LORazepam 2 MG TABLET PO PRN (17:07)
[2021-07-29] MEDS: OLANZapine 7.5 MG TABLET PO SCH (20:42)
[2021-07-29] MEDS ORDERED: HALOPERIDOL LACTATE 5 MG/ML VIAL IM PRN (20:45)
[2021-07-30 08:33] VITALS: BP 112/70
[2021-07-30 08:45] LABS: CHOL/HDL RATIO 2.5 (4.2-7.3); THYROID STIMULATING HORMONE 1.53 uIU/mL (0.36-3.74)
[2021-07-30 08:47] LABS: HEMOGLOBIN A1C 5.6 % (3.8-5.6)
[2021-07-30] MEDS: DARUNAVIR/COB/EMTRI/TENOF ALAF 800-150-200-10 MG TABLET PO SCH (09:19)
[2021-07-30] MEDS: DIVALPROEX SODIUM 500 MG DR TABLET PO SCH ×2 (09:19→21:03)
[2021-07-30 16:57] VITALS: BP 130/79
[2021-07-30] MEDS: LORazepam 2 MG TABLET PO PRN (21:03)
[2021-07-30] MEDS: OLANZapine 7.5 MG TABLET PO SCH (21:03)
[2021-07-31 06:21] VITALS: BP 127/80
[2021-07-31] MEDS: LORazepam 2 MG TABLET PO PRN ×2 (08:53→16:24)
[2021-07-31] MEDS: DIVALPROEX SODIUM 500 MG DR TABLET PO SCH ×2 (08:53→21:16)
[2021-07-31] MEDS: DARUNAVIR/COB/EMTRI/TENOF ALAF 800-150-200-10 MG TABLET PO SCH (08:53)
[2021-07-31 16:22] VITALS: BP 123/72
[2021-07-31] MEDS: ZOLPIDEM TARTRATE 10 MG TABLET PO PRN (21:17)
[2021-07-31] MEDS: OLANZapine 7.5 MG TABLET PO SCH (21:17)
[2021-08-01 05:29] VITALS: BP 127/72
[2021-08-01] MEDS: DIVALPROEX SODIUM 500 MG DR TABLET PO SCH ×3 (08:45→21:48)
[2021-08-01] MEDS: DARUNAVIR/COB/EMTRI/TENOF ALAF 800-150-200-10 MG TABLET PO SCH (08:45)
[2021-08-01] MEDS: LORazepam 2 MG TABLET PO PRN ×2 (08:45→21:48)
[2021-08-01] MEDS: HALOPERIDOL 5 MG TABLET PO PRN (11:09)
[2021-08-01] MEDS ORDERED: TUBERCULIN, PURIFIED PROTEIN DERIVATIVE 5 TU/0.1 ML SYRINGE ID ONE (12:30)
[2021-08-01] MEDS ORDERED: DiphenhydrAMINE HCL 50 MG/ML VIAL IM ONE (15:50)
[2021-08-01] MEDS ORDERED: LORazepam 2 MG/ML VIAL IM ONE (15:50)
[2021-08-01] MEDS ORDERED: HALOPERIDOL LACTATE 5 MG/ML VIAL IM ONE (15:50)
[2021-08-01] MEDS ORDERED: LORazepam 2 MG/ML VIAL ONE (15:52)
[2021-08-01] MEDS ORDERED: DiphenhydrAMINE HCL 50 MG/ML VIAL ONE (15:52)
[2021-08-01 16:22] VITALS: BP 140/93
[2021-08-01] MEDS: OLANZapine 7.5 MG TABLET PO SCH ×2 (21:00→21:48)
[2021-08-01 21:48] VITALS: BP 127/78
[2021-08-01] MEDS: ZOLPIDEM TARTRATE 10 MG TABLET PO PRN (21:48)
[2021-08-02] MEDS: DIVALPROEX SODIUM 500 MG DR TABLET PO SCH ×2 (09:10→20:51)
[2021-08-02] MEDS: DARUNAVIR/COB/EMTRI/TENOF ALAF 800-150-200-10 MG TABLET PO SCH (09:10)
[2021-08-02] MEDS: LORazepam 2 MG TABLET PO PRN ×2 (14:37→18:42)
[2021-08-02 16:29] VITALS: BP 103/64
[2021-08-02] MEDS: HALOPERIDOL 5 MG TABLET PO PRN (18:42)
[2021-08-02] MEDS: OLANZapine 7.5 MG TABLET PO SCH (20:51)
[2021-08-02] MEDS: ZOLPIDEM TARTRATE 10 MG TABLET PO PRN (20:51)
[2021-08-03 08:29] VITALS: BP 107/65
[2021-08-03] MEDS: DIVALPROEX SODIUM 500 MG DR TABLET PO SCH ×2 (09:12→20:35)
[2021-08-03] MEDS: FOLIC ACID 1 MG TABLET PO SCH (09:12)
[2021-08-03] MEDS: LORazepam 2 MG TABLET PO PRN (09:12)
[2021-08-03] MEDS: HALOPERIDOL 5 MG TABLET PO PRN (09:12)
[2021-08-03] MEDS: DARUNAVIR/COB/EMTRI/TENOF ALAF 800-150-200-10 MG TABLET PO SCH (09:12)
[2021-08-03] MEDS: MULTIVITAMINS WITH MINERALS, THERAPEUTIC TABLET PO SCH (09:13)
[2021-08-03] MEDS: THIAMINE 100 MG TABLET PO SCH (09:19)
[2021-08-03] MEDS: OLANZapine 7.5 MG TABLET PO SCH (20:35)
[2021-08-03] MEDS: ZOLPIDEM TARTRATE 10 MG TABLET PO PRN (20:36)
[2021-08-04 02:07] VITALS: BP 107/62
[2021-08-04] MEDS: DIVALPROEX SODIUM 500 MG DR TABLET PO SCH ×2 (08:20→21:07)
[2021-08-04] MEDS: FOLIC ACID 1 MG TABLET PO SCH (08:20)
[2021-08-04] MEDS: DARUNAVIR/COB/EMTRI/TENOF ALAF 800-150-200-10 MG TABLET PO SCH (08:20)
[2021-08-04] MEDS: HALOPERIDOL 5 MG TABLET PO PRN (08:20)
[2021-08-04] MEDS: THIAMINE 100 MG TABLET PO SCH (08:20)
[2021-08-04] MEDS: LORazepam 2 MG TABLET PO PRN ×2 (08:20→17:02)
[2021-08-04] MEDS: MULTIVITAMINS WITH MINERALS, THERAPEUTIC TABLET PO SCH (08:33)
[2021-08-04 16:19] VITALS: BP 105/76
[2021-08-04] MEDS: ZOLPIDEM TARTRATE 10 MG TABLET PO PRN (21:07)
[2021-08-04] MEDS: OLANZapine 7.5 MG TABLET PO SCH (21:07)
[2021-08-05 05:03] VITALS: BP 106/61
[2021-08-05] MEDS: DIVALPROEX SODIUM 500 MG DR TABLET PO SCH ×2 (09:10→21:06)
[2021-08-05] MEDS: FOLIC ACID 1 MG TABLET PO SCH (09:10)
[2021-08-05] MEDS: HALOPERIDOL 5 MG TABLET PO PRN (09:10)
[2021-08-05] MEDS: LORazepam 2 MG TABLET PO PRN (09:10)
[2021-08-05] MEDS: DARUNAVIR/COB/EMTRI/TENOF ALAF 800-150-200-10 MG TABLET PO SCH (09:10)
[2021-08-05] MEDS: MULTIVITAMINS WITH MINERALS, THERAPEUTIC TABLET PO SCH (09:10)
[2021-08-05] MEDS: THIAMINE 100 MG TABLET PO SCH (09:10)
[2021-08-05 17:21] VITALS: BP 102/61
[2021-08-05] MEDS: OLANZapine 7.5 MG TABLET PO SCH (21:07)
[2021-08-06] MEDS: HALOPERIDOL 5 MG TABLET PO PRN ×2 (01:06→08:59)
[2021-08-06] MEDS: LORazepam 2 MG TABLET PO PRN ×2 (01:06→08:59)
[2021-08-06] MEDS: ZOLPIDEM TARTRATE 10 MG TABLET PO PRN (01:07)
[2021-08-06 01:23] VITALS: BP 123/78
[2021-08-06 08:40] VITALS: BP 126/74
[2021-08-06] MEDS: THIAMINE 100 MG TABLET PO SCH (08:59)
[2021-08-06] MEDS: MULTIVITAMINS WITH MINERALS, THERAPEUTIC TABLET PO SCH (08:59)
[2021-08-06] MEDS: DIVALPROEX SODIUM 500 MG DR TABLET PO SCH ×2 (08:59→20:42)
[2021-08-06] MEDS: FOLIC ACID 1 MG TABLET PO SCH (08:59)
[2021-08-06] MEDS: DARUNAVIR/COB/EMTRI/TENOF ALAF 800-150-200-10 MG TABLET PO SCH (09:00)
[2021-08-06 16:32] VITALS: BP 106/62
[2021-08-06] MEDS: OLANZapine 7.5 MG TABLET PO SCH (20:42)
[2021-08-07 05:06] VITALS: BP 112/62
[2021-08-07] MEDS: MULTIVITAMINS WITH MINERALS, THERAPEUTIC TABLET PO SCH (08:56)
[2021-08-07] MEDS: LORazepam 2 MG TABLET PO PRN (08:56)
[2021-08-07] MEDS: THIAMINE 100 MG TABLET PO SCH (08:56)
[2021-08-07] MEDS: HALOPERIDOL 5 MG TABLET PO PRN (08:56)
[2021-08-07] MEDS: DARUNAVIR/COB/EMTRI/TENOF ALAF 800-150-200-10 MG TABLET PO SCH (08:56)
[2021-08-07] MEDS: DIVALPROEX SODIUM 500 MG DR TABLET PO SCH ×2 (08:56→20:35)
[2021-08-07] MEDS: FOLIC ACID 1 MG TABLET PO SCH (08:56)
[2021-08-07 16:54] VITALS: BP 112/72
[2021-08-07] MEDS: OLANZapine 7.5 MG TABLET PO SCH (20:35)
[2021-08-08 01:29] VITALS: BP 114/79
[2021-08-08 08:21] VITALS: BP 120/79
[2021-08-08] MEDS: FOLIC ACID 1 MG TABLET PO SCH (08:36)
[2021-08-08] MEDS: THIAMINE 100 MG TABLET PO SCH (08:36)
[2021-08-08] MEDS: LORazepam 2 MG TABLET PO PRN (08:37)
[2021-08-08] MEDS: MULTIVITAMINS WITH MINERALS, THERAPEUTIC TABLET PO SCH (08:37)
[2021-08-08] MEDS: DARUNAVIR/COB/EMTRI/TENOF ALAF 800-150-200-10 MG TABLET PO SCH (08:37)
[2021-08-08] MEDS: DIVALPROEX SODIUM 500 MG DR TABLET PO SCH ×2 (08:37→21:06)
[2021-08-08 16:29] VITALS: BP 124/81
[2021-08-08] MEDS: OLANZapine 7.5 MG TABLET PO SCH (21:11)
[2021-08-09 01:05] VITALS: BP 122/89
[2021-08-09] MEDS: THIAMINE 100 MG TABLET PO SCH (08:28)
[2021-08-09] MEDS: HALOPERIDOL 5 MG TABLET PO PRN ×2 (08:28→16:13)
[2021-08-09] MEDS: LORazepam 2 MG TABLET PO PRN ×2 (08:28→16:13)
[2021-08-09] MEDS: MULTIVITAMINS WITH MINERALS, THERAPEUTIC TABLET PO SCH (08:28)
[2021-08-09] MEDS: FOLIC ACID 1 MG TABLET PO SCH (08:28)
[2021-08-09] MEDS: DIVALPROEX SODIUM 500 MG DR TABLET PO SCH ×2 (08:28→20:55)
[2021-08-09] MEDS: DARUNAVIR/COB/EMTRI/TENOF ALAF 800-150-200-10 MG TABLET PO SCH (08:32)
[2021-08-09 08:58] VITALS: BP 123/84
[2021-08-09 16:17] VITALS: BP 117/74
[2021-08-09] MEDS: OLANZapine 7.5 MG TABLET PO SCH (20:55)
[2021-08-09] MEDS: ZOLPIDEM TARTRATE 10 MG TABLET PO PRN (20:56)
[2021-08-10 00:59] VITALS: BP 125/79
[2021-08-10] MEDS: DARUNAVIR/COB/EMTRI/TENOF ALAF 800-150-200-10 MG TABLET PO SCH (08:01)
[2021-08-10] MEDS: THIAMINE 100 MG TABLET PO SCH (08:02)
[2021-08-10] MEDS: MULTIVITAMINS WITH MINERALS, THERAPEUTIC TABLET PO SCH (08:02)
[2021-08-10] MEDS: DIVALPROEX SODIUM 500 MG DR TABLET PO SCH ×2 (08:02→20:58)
[2021-08-10] MEDS: FOLIC ACID 1 MG TABLET PO SCH (08:02)
[2021-08-10] MEDS: LORazepam 2 MG TABLET PO PRN ×2 (09:22→16:39)
[2021-08-10 16:18] VITALS: BP 102/61
[2021-08-10] MEDS: OLANZapine 7.5 MG TABLET PO SCH (20:58)
[2021-08-10 21:21] LABS: GLUCOMETER DEV NAME(LOC) BV3N.; GLUCOSE,POINT OF CARE 129 MG/DL (70-110)
[2021-08-11 04:04] VITALS: BP 131/84
[2021-08-11] MEDS: DARUNAVIR/COB/EMTRI/TENOF ALAF 800-150-200-10 MG TABLET PO SCH (08:03)
[2021-08-11] MEDS: MULTIVITAMINS WITH MINERALS, THERAPEUTIC TABLET PO SCH (08:03)
[2021-08-11] MEDS: DIVALPROEX SODIUM 500 MG DR TABLET PO SCH ×2 (08:03→20:22)
[2021-08-11] MEDS: LORazepam 2 MG TABLET PO PRN (08:04)
[2021-08-11] MEDS: FOLIC ACID 1 MG TABLET PO SCH (08:04)
[2021-08-11] MEDS: THIAMINE 100 MG TABLET PO SCH (08:04)
[2021-08-11 08:25] VITALS: BP 113/69
[2021-08-11 16:33] VITALS: BP 119/78
[2021-08-11] MEDS: OLANZapine 7.5 MG TABLET PO SCH (20:22)
[2021-08-12 04:02] VITALS: BP 118/74
[2021-08-12] MEDS: FOLIC ACID 1 MG TABLET PO SCH (08:24)
[2021-08-12] MEDS: MULTIVITAMINS WITH MINERALS, THERAPEUTIC TABLET PO SCH (08:24)
[2021-08-12] MEDS: DARUNAVIR/COB/EMTRI/TENOF ALAF 800-150-200-10 MG TABLET PO SCH (08:24)
[2021-08-12] MEDS: LORazepam 2 MG TABLET PO PRN ×2 (08:24→18:15)
[2021-08-12] MEDS: THIAMINE 100 MG TABLET PO SCH (08:24)
[2021-08-12] MEDS: DIVALPROEX SODIUM 500 MG DR TABLET PO SCH ×2 (08:24→20:13)
[2021-08-12 08:40] VITALS: BP 124/72
[2021-08-12 16:16] VITALS: BP 102/62
[2021-08-12] MEDS: OLANZapine 7.5 MG TABLET PO SCH (20:13)
[2021-08-12] MEDS ORDERED: PERMETHRIN 1% 60 ML LOTION TP ONE (21:15)
[2021-08-13 04:54] VITALS: BP 110/68
[2021-08-13 08:11] VITALS: BP 122/72
[2021-08-13] MEDS: MULTIVITAMINS WITH MINERALS, THERAPEUTIC TABLET PO SCH (08:18)
[2021-08-13] MEDS: DARUNAVIR/COB/EMTRI/TENOF ALAF 800-150-200-10 MG TABLET PO SCH (08:19)
[2021-08-13] MEDS: THIAMINE 100 MG TABLET PO SCH (08:19)
[2021-08-13] MEDS: FOLIC ACID 1 MG TABLET PO SCH (08:19)
[2021-08-13] MEDS: LORazepam 2 MG TABLET PO PRN (08:19)
[2021-08-13] MEDS: DIVALPROEX SODIUM 500 MG DR TABLET PO SCH ×2 (08:19→20:20)
[2021-08-13] MEDS: HALOPERIDOL 5 MG TABLET PO PRN (12:03)
[2021-08-13 16:25] VITALS: BP 106/64
[2021-08-13] MEDS: OLANZapine 7.5 MG TABLET PO SCH (20:20)
[2021-08-14 04:53] VITALS: BP 110/68
[2021-08-14 08:09] VITALS: BP 122/64
[2021-08-14] MEDS: FOLIC ACID 1 MG TABLET PO SCH (08:15)
[2021-08-14] MEDS: MULTIVITAMINS WITH MINERALS, THERAPEUTIC TABLET PO SCH (08:15)
[2021-08-14] MEDS: THIAMINE 100 MG TABLET PO SCH (08:15)
[2021-08-14] MEDS: DIVALPROEX SODIUM 500 MG DR TABLET PO SCH ×2 (08:15→20:47)
[2021-08-14] MEDS: DARUNAVIR/COB/EMTRI/TENOF ALAF 800-150-200-10 MG TABLET PO SCH (08:16)
[2021-08-14] MEDS: LORazepam 2 MG TABLET PO PRN ×2 (08:16→20:47)
[2021-08-14 16:13] VITALS: BP 112/64
[2021-08-14] MEDS: OLANZapine 7.5 MG TABLET PO SCH (20:46)
[2021-08-15 04:09] VITALS: BP 122/64
[2021-08-15] MEDS: DARUNAVIR/COB/EMTRI/TENOF ALAF 800-150-200-10 MG TABLET PO SCH (08:03)
[2021-08-15] MEDS: THIAMINE 100 MG TABLET PO SCH (08:03)
[2021-08-15] MEDS: MULTIVITAMINS WITH MINERALS, THERAPEUTIC TABLET PO SCH (08:03)
[2021-08-15] MEDS: DIVALPROEX SODIUM 500 MG DR TABLET PO SCH ×2 (08:03→20:18)
[2021-08-15] MEDS: FOLIC ACID 1 MG TABLET PO SCH (08:03)
[2021-08-15] MEDS: LORazepam 2 MG TABLET PO PRN ×2 (08:03→16:51)
[2021-08-15] MEDS: HALOPERIDOL 5 MG TABLET PO PRN ×2 (08:21→16:51)
[2021-08-15 08:23] VITALS: BP 133/81
[2021-08-15] MEDS ORDERED: DiphenhydrAMINE HCL 50 MG/ML VIAL IM ONE (09:00)
[2021-08-15] MEDS ORDERED: ChlorproMAZINE HCL 50 MG/2 ML AMP IM ONE (09:00)
[2021-08-15] MEDS ORDERED: LORazepam 2 MG/ML VIAL IM ONE (09:00)
[2021-08-15] MEDS ORDERED: DiphenhydrAMINE HCL 50 MG/ML VIAL ONE (09:04)
[2021-08-15] MEDS ORDERED: LORazepam 2 MG/ML VIAL ONE (09:04)
[2021-08-15] MEDS ORDERED: ChlorproMAZINE HCL 50 MG/2 ML AMP ONE (09:05)
[2021-08-15] MEDS ORDERED: PERMETHRIN 1% 60 ML LOTION TP ONE (12:45)
[2021-08-15] MEDS ORDERED: IVERMECTIN 3 MG TABLET PO ONE (16:00)
[2021-08-15 16:20] VITALS: BP 110/78
[2021-08-15] MEDS: ZOLPIDEM TARTRATE 10 MG TABLET PO PRN (20:18)
[2021-08-15] MEDS: OLANZapine 7.5 MG TABLET PO SCH (20:18)
[2021-08-16 05:53] VITALS: BP 110/61
[2021-08-16] MEDS: HALOPERIDOL 5 MG TABLET PO PRN (08:28)
[2021-08-16] MEDS: THIAMINE 100 MG TABLET PO SCH (08:28)
[2021-08-16] MEDS: DARUNAVIR/COB/EMTRI/TENOF ALAF 800-150-200-10 MG TABLET PO SCH (08:28)
[2021-08-16] MEDS: MULTIVITAMINS WITH MINERALS, THERAPEUTIC TABLET PO SCH (08:28)
[2021-08-16] MEDS: FOLIC ACID 1 MG TABLET PO SCH (08:28)
[2021-08-16] MEDS: DIVALPROEX SODIUM 500 MG DR TABLET PO SCH ×2 (08:28→21:15)
[2021-08-16] MEDS: LORazepam 2 MG TABLET PO PRN (08:28)
[2021-08-16 12:48] VITALS: BP 116/83
[2021-08-16 16:19] VITALS: BP 140/81
[2021-08-16] MEDS: OLANZapine 7.5 MG TABLET PO SCH (21:15)
[2021-08-17 07:13] VITALS: BP 132/72
[2021-08-17] MEDS: DIVALPROEX SODIUM 500 MG DR TABLET PO SCH ×2 (08:24→20:24)
[2021-08-17] MEDS: DARUNAVIR/COB/EMTRI/TENOF ALAF 800-150-200-10 MG TABLET PO SCH (08:24)
[2021-08-17] MEDS: MULTIVITAMINS WITH MINERALS, THERAPEUTIC TABLET PO SCH (08:24)
[2021-08-17] MEDS: THIAMINE 100 MG TABLET PO SCH (08:24)
[2021-08-17] MEDS: FOLIC ACID 1 MG TABLET PO SCH (08:25)
[2021-08-17 08:39] VITALS: BP 130/70
[2021-08-17 16:16] VITALS: BP 135/76
[2021-08-17] MEDS: LORazepam 2 MG TABLET PO PRN (18:14)
[2021-08-17] MEDS: HALOPERIDOL 5 MG TABLET PO PRN (18:14)
[2021-08-17] MEDS: ZOLPIDEM TARTRATE 10 MG TABLET PO PRN (20:24)
[2021-08-17] MEDS: OLANZapine 7.5 MG TABLET PO SCH (20:24)
[2021-08-18 05:17] VITALS: BP 128/74
[2021-08-18 08:10] VITALS: BP 120/68
[2021-08-18] MEDS: DARUNAVIR/COB/EMTRI/TENOF ALAF 800-150-200-10 MG TABLET PO SCH (09:07)
[2021-08-18] MEDS: LORazepam 2 MG TABLET PO PRN ×2 (09:08→20:15)
[2021-08-18] MEDS: DIVALPROEX SODIUM 500 MG DR TABLET PO SCH ×2 (09:08→20:15)
[2021-08-18] MEDS: THIAMINE 100 MG TABLET PO SCH (09:08)
[2021-08-18] MEDS: MULTIVITAMINS WITH MINERALS, THERAPEUTIC TABLET PO SCH (09:08)
[2021-08-18] MEDS: FOLIC ACID 1 MG TABLET PO SCH (09:08)
[2021-08-18 17:12] VITALS: BP 115/77
[2021-08-18] MEDS: HALOPERIDOL 5 MG TABLET PO PRN (20:15)
[2021-08-18] MEDS: OLANZapine 7.5 MG TABLET PO SCH (20:16)
[2021-08-19 06:06] VITALS: BP 128/74
[2021-08-19] MEDS: DARUNAVIR/COB/EMTRI/TENOF ALAF 800-150-200-10 MG TABLET PO SCH (08:11)
[2021-08-19] MEDS: HALOPERIDOL 5 MG TABLET PO PRN ×2 (08:11→16:58)
[2021-08-19] MEDS: MULTIVITAMINS WITH MINERALS, THERAPEUTIC TABLET PO SCH (08:11)
[2021-08-19] MEDS: FOLIC ACID 1 MG TABLET PO SCH (08:11)
[2021-08-19] MEDS: LORazepam 2 MG TABLET PO PRN ×2 (08:11→16:58)
[2021-08-19] MEDS: DIVALPROEX SODIUM 500 MG DR TABLET PO SCH ×2 (08:11→20:24)
[2021-08-19] MEDS: THIAMINE 100 MG TABLET PO SCH (08:11)
[2021-08-19 10:28] VITALS: BP 120/74
[2021-08-19 16:17] VITALS: BP 108/64
[2021-08-19] MEDS: ZOLPIDEM TARTRATE 10 MG TABLET PO PRN (20:25)
[2021-08-19] MEDS: OLANZapine 7.5 MG TABLET PO SCH (20:25)
[2021-08-20 04:10] VITALS: BP 130/77
[2021-08-20] MEDS: LORazepam 2 MG TABLET PO PRN (08:07)
[2021-08-20] MEDS: MULTIVITAMINS WITH MINERALS, THERAPEUTIC TABLET PO SCH (08:07)
[2021-08-20] MEDS: FOLIC ACID 1 MG TABLET PO SCH (08:07)
[2021-08-20] MEDS: DARUNAVIR/COB/EMTRI/TENOF ALAF 800-150-200-10 MG TABLET PO SCH (08:07)
[2021-08-20] MEDS: DIVALPROEX SODIUM 500 MG DR TABLET PO SCH ×2 (08:07→20:27)
[2021-08-20] MEDS: THIAMINE 100 MG TABLET PO SCH (08:07)
[2021-08-20] MEDS: HALOPERIDOL 5 MG TABLET PO PRN (08:07)
[2021-08-20 08:08] VITALS: BP 128/80
[2021-08-20 16:12] VITALS: BP 102/62
[2021-08-20] MEDS: OLANZapine 7.5 MG TABLET PO SCH (20:28)
[2021-08-21 06:21] VITALS: BP 116/77
[2021-08-21] MEDS: FOLIC ACID 1 MG TABLET PO SCH (08:07)
[2021-08-21] MEDS: THIAMINE 100 MG TABLET PO SCH (08:07)
[2021-08-21] MEDS: DIVALPROEX SODIUM 500 MG DR TABLET PO SCH ×2 (08:07→20:18)
[2021-08-21] MEDS: MULTIVITAMINS WITH MINERALS, THERAPEUTIC TABLET PO SCH (08:08)
[2021-08-21] MEDS: DARUNAVIR/COB/EMTRI/TENOF ALAF 800-150-200-10 MG TABLET PO SCH (08:08)
[2021-08-21] MEDS: LORazepam 2 MG TABLET PO PRN ×2 (08:08→20:18)
[2021-08-21 09:27] VITALS: BP 126/78
[2021-08-21 16:07] VITALS: BP 104/64
[2021-08-21] MEDS: OLANZapine 7.5 MG TABLET PO SCH (20:18)
[2021-08-21] MEDS: HALOPERIDOL 5 MG TABLET PO PRN (20:18)
[2021-08-21] MEDS: ZOLPIDEM TARTRATE 10 MG TABLET PO PRN (20:18)
[2021-08-22] MEDS: THIAMINE 100 MG TABLET PO SCH (08:10)
[2021-08-22] MEDS: DARUNAVIR/COB/EMTRI/TENOF ALAF 800-150-200-10 MG TABLET PO SCH (08:11)
[2021-08-22] MEDS: DIVALPROEX SODIUM 500 MG DR TABLET PO SCH ×2 (08:11→20:38)
[2021-08-22] MEDS: LORazepam 2 MG TABLET PO PRN ×2 (08:11→16:49)
[2021-08-22] MEDS: MULTIVITAMINS WITH MINERALS, THERAPEUTIC TABLET PO SCH (08:11)
[2021-08-22] MEDS: FOLIC ACID 1 MG TABLET PO SCH (08:11)
[2021-08-22 10:06] VITALS: BP 116/76
[2021-08-22 16:14] VITALS: BP 118/70
[2021-08-22] MEDS: HALOPERIDOL 5 MG TABLET PO PRN (16:49)
[2021-08-22] MEDS: ZOLPIDEM TARTRATE 10 MG TABLET PO PRN (20:38)
[2021-08-22] MEDS: OLANZapine 7.5 MG TABLET PO SCH (20:38)
[2021-08-23 04:23] VITALS: BP 110/61
[2021-08-23 08:05] VITALS: BP 116/72
[2021-08-23] MEDS: HALOPERIDOL 5 MG TABLET PO PRN ×3 (08:30→18:50)
[2021-08-23] MEDS: DIVALPROEX SODIUM 500 MG DR TABLET PO SCH ×2 (08:30→20:32)
[2021-08-23] MEDS: LORazepam 2 MG TABLET PO PRN ×3 (08:30→18:50)
[2021-08-23] MEDS: THIAMINE 100 MG TABLET PO SCH (08:31)
[2021-08-23] MEDS: DARUNAVIR/COB/EMTRI/TENOF ALAF 800-150-200-10 MG TABLET PO SCH (08:31)
[2021-08-23] MEDS: FOLIC ACID 1 MG TABLET PO SCH (08:31)
[2021-08-23] MEDS: MULTIVITAMINS WITH MINERALS, THERAPEUTIC TABLET PO SCH (08:31)
[2021-08-23 16:25] VITALS: BP 114/68
[2021-08-23] MEDS: OLANZapine 7.5 MG TABLET PO SCH (20:32)
[2021-08-23] MEDS: ZOLPIDEM TARTRATE 10 MG TABLET PO PRN (20:33)
[2021-08-24 00:29] VITALS: BP 120/67
[2021-08-24 08:33] VITALS: BP 135/61
[2021-08-24] MEDS: DARUNAVIR/COB/EMTRI/TENOF ALAF 800-150-200-10 MG TABLET PO SCH (08:53)
[2021-08-24] MEDS: MULTIVITAMINS WITH MINERALS, THERAPEUTIC TABLET PO SCH (08:53)
[2021-08-24] MEDS: DIVALPROEX SODIUM 500 MG DR TABLET PO SCH ×2 (08:53→20:37)
[2021-08-24] MEDS: THIAMINE 100 MG TABLET PO SCH (08:53)
[2021-08-24] MEDS: FOLIC ACID 1 MG TABLET PO SCH (08:53)
[2021-08-24 16:17] VITALS: BP 108/67
[2021-08-24] MEDS: OLANZapine 7.5 MG TABLET PO SCH (20:38)
[2021-08-25 03:28] VITALS: BP 112/76
[2021-08-25 08:37] VITALS: BP 122/80
[2021-08-25] MEDS: FOLIC ACID 1 MG TABLET PO SCH (08:45)
[2021-08-25] MEDS: MULTIVITAMINS WITH MINERALS, THERAPEUTIC TABLET PO SCH (08:45)
[2021-08-25] MEDS: THIAMINE 100 MG TABLET PO SCH (08:45)
[2021-08-25] MEDS: DARUNAVIR/COB/EMTRI/TENOF ALAF 800-150-200-10 MG TABLET PO SCH (08:45)
[2021-08-25] MEDS: DIVALPROEX SODIUM 500 MG DR TABLET PO SCH ×2 (08:45→20:20)
[2021-08-25 16:56] VITALS: BP 132/70
[2021-08-25] MEDS: OLANZapine 7.5 MG TABLET PO SCH (20:20)
[2021-08-26 05:44] VITALS: BP 118/70
[2021-08-26] MEDS: LORazepam 2 MG TABLET PO PRN (07:56)
[2021-08-26] MEDS: THIAMINE 100 MG TABLET PO SCH (08:00)
[2021-08-26] MEDS: MULTIVITAMINS WITH MINERALS, THERAPEUTIC TABLET PO SCH (08:00)
[2021-08-26] MEDS: DARUNAVIR/COB/EMTRI/TENOF ALAF 800-150-200-10 MG TABLET PO SCH (08:00)
[2021-08-26] MEDS: DIVALPROEX SODIUM 500 MG DR TABLET PO SCH ×2 (08:00→21:24)
[2021-08-26] MEDS: FOLIC ACID 1 MG TABLET PO SCH (08:00)
[2021-08-26 08:35] VITALS: BP 112/72
[2021-08-26 17:11] VITALS: BP 110/70
[2021-08-26] MEDS: OLANZapine 7.5 MG TABLET PO SCH (21:24)
[2021-08-27 06:02] VITALS: BP 118/78
[2021-08-27 08:05] VITALS: BP 120/78
[2021-08-27] MEDS: DARUNAVIR/COB/EMTRI/TENOF ALAF 800-150-200-10 MG TABLET PO SCH (08:16)
[2021-08-27] MEDS: FOLIC ACID 1 MG TABLET PO SCH (08:16)
[2021-08-27] MEDS: HALOPERIDOL 5 MG TABLET PO PRN (08:16)
[2021-08-27] MEDS: LORazepam 2 MG TABLET PO PRN ×2 (08:17→16:25)
[2021-08-27] MEDS: DIVALPROEX SODIUM 500 MG DR TABLET PO SCH ×2 (08:17→20:31)
[2021-08-27] MEDS: THIAMINE 100 MG TABLET PO SCH (08:17)
[2021-08-27] MEDS: MULTIVITAMINS WITH MINERALS, THERAPEUTIC TABLET PO SCH (08:17)
[2021-08-27 08:56] LABS: GLUCOMETER DEV NAME(LOC) POC.BV
[2021-08-27] MEDS ORDERED: DIVA-112 PO (13:33)
[2021-08-27] MEDS ORDERED: OLAN7.5T22 PO (13:33)
[2021-08-27 16:40] VITALS: BP 108/74
[2021-08-27] MEDS: OLANZapine 7.5 MG TABLET PO SCH (20:31)
[2021-08-27] MEDS: ZOLPIDEM TARTRATE 10 MG TABLET PO PRN (20:31)
[2021-08-28 04:28] VITALS: BP 116/85
[2021-08-28] MEDS: FOLIC ACID 1 MG TABLET PO SCH (07:57)
[2021-08-28] MEDS: THIAMINE 100 MG TABLET PO SCH (07:57)
[2021-08-28] MEDS: LORazepam 2 MG TABLET PO PRN ×2 (07:57→16:49)
[2021-08-28] MEDS: DIVALPROEX SODIUM 500 MG DR TABLET PO SCH ×2 (07:57→20:46)
[2021-08-28] MEDS: MULTIVITAMINS WITH MINERALS, THERAPEUTIC TABLET PO SCH (07:57)
[2021-08-28] MEDS: DARUNAVIR/COB/EMTRI/TENOF ALAF 800-150-200-10 MG TABLET PO SCH (07:57)
[2021-08-28 10:06] VITALS: BP 120/82
[2021-08-28] MEDS: HALOPERIDOL 5 MG TABLET PO PRN ×2 (10:55→16:49)
[2021-08-28 16:18] VITALS: BP 103/60
[2021-08-28] MEDS: OLANZapine 7.5 MG TABLET PO SCH (20:46)
[2021-08-28] MEDS: ZOLPIDEM TARTRATE 10 MG TABLET PO PRN (20:46)
[2021-08-29 06:04] VITALS: BP 122/80
[2021-08-29] MEDS: DIVALPROEX SODIUM 500 MG DR TABLET PO SCH (08:20)
[2021-08-29] MEDS: DARUNAVIR/COB/EMTRI/TENOF ALAF 800-150-200-10 MG TABLET PO SCH (08:20)
[2021-08-29] MEDS: FOLIC ACID 1 MG TABLET PO SCH (08:20)
[2021-08-29] MEDS: MULTIVITAMINS WITH MINERALS, THERAPEUTIC TABLET PO SCH (08:21)
[2021-08-29] MEDS: THIAMINE 100 MG TABLET PO SCH (08:21)
[2021-08-29 08:51] VITALS: BP 118/80
== END 2021-08-29 13:30 | DRG 750 ==
LOC: EMS 00:14 → B3A 15:50
PROVIDERS: ADMIT Psychiatry & Neurology Child & Adolescent Psychiatry; ATTEND Psychiatry & Neurology Child & Adolescent Psychiatry
DX: F25.1 Schizoaffective disorder, depressive type (principal); Z59.00 Homelessness unspecified; D64.9 Anemia, unspecified; F10.10 Alcohol abuse, uncomplicated; J45.909 Unspecified asthma, uncomplicated; K59.00 Constipation, unspecified; R73.9 Hyperglycemia, unspecified; F19.10 Other psychoactive substance abuse, uncomplicated
CPT/HCPCS: 80053; 80061; 81003; 82962; 83036; 84443; 85025; 87081; 99291; G0480; J1200; J1630; J2060; J3230; J3535; Q9967